=== PATIENT | male | born 1960 | race Caucasian/White ===

== ENCOUNTER 2019-03-11 17:46 | Emergency (ER) | payer SELFPAY ==
--- NOTE | 2019-03-11 | XR_ITS ---
CHEST XRAY TECHNIQUE: Portable chest. CLINICAL INFORMATION: admission COMPARISON: February 02, 2019 FINDINGS: Heart: Normal cardiac silhouette. Lungs: Chronic emphysematous changes. Calcified granuloma right upper lobe. No acute pulmonary infiltrates. Bones: Normal visualized bony structures. IMPRESSION: No acute chest findings MTDD
[2019-03-11 17:48] VITALS: BP 175/106; PULSE 104; RESP 16; TEMP 37.1; O2SAT 95; BMI 29.1
--- NOTE | 2019-03-11 18:18 | W.ED.EXTPRO ---
HPI - Extremity Problem General: Chief complaint: Extremity Problem,Nontraumatic Stated complaint: LEFT LEG PAIN, SOB History of Present Illness: HPI Narrative: Patient [place] by EMS from the [place]. Patient episode shortness of breath today and left lower extremity pain. Patient had the same problem about a month ago here in the ER and had a completely negative work-up. Patient does have appoint with cardiology next week. Patient still having some pain in his left leg. MD Complaint: extremity pain Onset (ago): hour(s) Pain Consistency: constant Location: left Quality: burning Radiation: none Exacerbating factors: nothing Associated symptoms: Reports short of breath; Deny chest pain, fever(s) or rash Review of Systems Const: Denies: fever, chills or body aches Eyes: Denies: change in vision or blurry vision ENMT: Denies: throat pain or nasal congestion Card: Denies: chest pain or shortness of breath on exertion Resp: Reports: shortness of breath; Denies: productive cough or non-productive cough GI: Denies: abdominal pain, nausea or vomiting : Denies: difficulty urinating Musc: Reports: extremity pain (Left leg) Skin/Breast: Denies: rash Neuro: Denies: headache Psych: Denies: anxiety or depression Donnie/Lymph: Denies: easy bruising PFSH ED PFSH: Statuses (acute, chronic, etc) shown below reflect problem list status as previously entered and may not be historically accurate Social History Smoking and tobacco status: former smoker Physical Exam Const: COMMON NORMALS: no apparent distress, average body habitus and oriented x3 HENMT: COMMON NORMALS: normocephalic HEAD & SCALP: normal to inspection and normocephalic FACE & SINUS: normal facial exam Eye: COMMON NORMALS: conjunctivae normal GENERAL EYE: normal appearance of both eyes CONJUNCTIVA: Yes conjunctivae normal Neck/C-Spine: COMMON NORMALS: no JVD Chest: COMMONS NORMALS: inspection of chest normal Resp: COMMON NORMALS: normal respiratory effort and clear to auscultation bilaterally AUSCULTATION: clear to auscultation bilaterally Cardio: COMMON NORMALS: no JVD, regular rate and regular rhythm RATE: regular rate RHYTHM: regular rhythm GI: COMMON NORMALS: normal to inspection, nondistended, normoactive bowel sounds Extremity: COMMON NORMALS: normal to inspection and full ROM Neuro: COMMON NORMALS: oriented x3 Course Vital Signs: Vital signs: Vital Signs Temperature 98.8 F 03/11/19 17:48 Pulse Rate 104 H 03/11/19 17:48 Respiratory Rate 16 03/11/19 17:48 Blood Pressure 175/106 03/11/19 17:48 Pulse Oximetry 95 03/11/19 17:48 MDM - Extremity (Nontraumatic) EKG Data^: EKG 1: Interpretation: Sinus Tach, RBBB, LEFT AFB, raTE 102 Coding Level of Care Code ED [employer] for [employer]
[2019-03-11 19:08] VITALS: BP 144/98
[2019-03-11] MEDS: cloNIDine 0.1 mg Tablet 0.2 MG PO (19:08)
[2019-03-11 19:11] VITALS: PULSE 74
[2019-03-11 19:43] LABS: Basophils % 0.2 %; Hemoglobin 14.5 g/dL (11.7-16.6); Lymphocytes # 0.7 10^3/uL (0.8-4.8); Lymphocytes % 8.4 %; Mean Corpuscular HGB Conc 33.7 g/dL (30.0-36.0); Mean Corpuscular Hemoglobin 28.5 pg (28.0-34.0); Mean Corpuscular Volume 84.6 fL (80-94); Mean Platelet Volume 12.3 fL (7.4-10.4); Monocytes # 0.2 10^3/uL (0.2-0.9); Neutrophils # 7.9 10^3/uL (1.8-7.7); Neutrophils % 89.2 %; Nucleated Red Blood Cells % 0 %; Platelet Count 266 10^3/cmm (130-400); Red Blood Count 5.08 10^6/uL (4.1-5.3); White Blood Count 8.9 10^3/uL (4.0-10.0)
[2019-03-11 19:47] LABS: Alanine Aminotransferase 39 U/L (0-41); Albumin Level 4.4 g/dL (3.5-5.2); Alkaline Phosphatase 111 IU/L (40-130); Anion Gap 17.2 (5-19); Aspartate Amino Transferase 24 U/L (0-40); Blood Urea Nitrogen 16 mg/dL (6-20); Calcium 9.5 mg/Dl (8.6-10.0); Carbon Dioxide 25 mmol/L (22-29); Chloride 97 mmol/L (98-107); Globulin 3.4 g/dL (1.3-4.6); Glomerular Filtration Rate 76.5 mL/min (90-130); Glucose 136 mg/dL (74-109); Potassium 4.2 mmol/L (3.5-5.1); Sodium 135 mmol/L (136-145); Total Bilirubin 0.6 mg/dL (0.15-1.2); Total Protein 7.8 g/dL (6.6-8.7)
[2019-03-11 19:51] LABS: Troponin T (5th) Once 10 ng/mL (0-15)
[2019-03-11 20:35] LABS: D Dimer 0.33 ug/mIFEU (0-0.59)
[2019-03-11] MEDS: ketorolac 30 mg/mL INJ IVP (20:51)
[2019-03-11 21:59] VITALS: BP 128/74; PULSE 68; RESP 18; O2SAT 98
== END 2019-03-11 22:00 | disposition home or self-care (01) ==
PROVIDERS: Nurse Practitioner Family; Emergency Provider Emergency Medicine; Family Provider Nurse Practitioner Family; PCP Nurse Practitioner Family
DX: Z87.891 Personal history of nicotine dependence (principal)
CPT/HCPCS: 36415; 71045; 80053; 84484; 85025; 85378; 96374; 99281; J1885